=== PATIENT | female | born 1955 | race Caucasian/White ===

== ENCOUNTER 2018-08-16 15:58 | Emergency (ER) | payer OTHER ==
[~2018-08-16] VITALS: Wt 69.4 kg
[2018-08-16] MEDS ORDERED: ALTEPLASE (tPA) 1 MG/ML BOLUS SYG IV* ONE (16:30)
[2018-08-16] MEDS ORDERED: ALTEPLASE 100 MG INJ IV* ONE (16:30)
[2018-08-16] MEDS ORDERED: SOD CHLORIDE 0.9% 50 ML IV ONE (16:30)
[2018-08-16] MEDS ORDERED: GABA300C16 PO (16:37)
[2018-08-16] MEDS ORDERED: LOSA100T15 PO (16:37)
[2018-08-16] MEDS ORDERED: GLIP5TAB13 PO (16:38)
[2018-08-16] MEDS ORDERED: AMLO5TAB4 PO (16:38)
[2018-08-16] MEDS ORDERED: METF100010 PO (16:39)
[2018-08-16] MEDS ORDERED: ATOR40TA68 PO (16:39)
[2018-08-16] MEDS ORDERED: IBUP-1542 PO (16:40)
--- NOTE | 2018-08-16 16:49 | STROKE ---
Date/Time of Note Date/Time of Note DATE: 08/16/18 TIME: 16:48 Patient Information General Patient location: emergency Arrival Date Age 63 Gender female Weight 69.4 kg Vital Signs Vital Signs Vital Signs Date Temp Pulse Resp B/P (MAP) Pulse Ox O2 O2 Flow FiO2 Time Delivery Rate 08/16/18 Nasal 1 16:40 Cannula 08/16/18 116 16 154/99 95 16:33 (117) Patient History Current Medications Allergies: Coded Allergies: No Known Allergy (Unverified , 08/16/18) Labs Coagulation Labs: Coagulation Test 08/16/18 16:09 Activated Partial Thromboplast Time 30.5 Sec (23.0-35.0) History & Physical History of Present Illness 63 F PMH DM, HTN LKW 1530 PST with acute left hemiparesis/hemianesthesia with some improvement prior to ED arrival per EMS NIH Stroke Scale NIH Stroke Scale [id number] Total Score: [id number] Date/Time Recorded DATE: 08/16/18 TIME: 16:23 Submitted By Ifeanyi Rausch t-PA Imaging Review Date/Time Imaging Reviewed DATE: 08/16/18 TIME: 16:17 t-PA Administration Recommendation: Yes Weight 69.4 kg Recommedation submitted by Ifeanyi Rausch Recommendations Disposition 63 F with acute left hemiparesis/hemianesthesia concerning for stroke. There is a right sylvian fissure hyperdensity concerning for distal right MCA occlusion. NIHSS is 4. Patient consents to IV tPA. Needs evaluation by Neuro IR regarding possible dense MCA sign distally on right side and CTA/CTP. Recommendation - Agree with transfer to [facility] for CTA/CTP to guide possible mechanical thrombectomy (not rigid evidence-based candidate as NIHSS currently 4, but cepting team can decide on mechanical thrombectomy evaluation for low NIHSS) Impression and plans were discussed with the patient and separately with the ER physician. The risks and benefits of the clot busting drug tPA were discussed. This included a 30% increased probability of good outcome at 3 months compared to no treatment with tPA and a 6% greater chance of bleeding into the brain when compared to patients not receiving tPA. Patient's blood pressure will need to be <185/110 in order to be a candidate for TPA. The patient expressed understanding and would like to receive IV tPA. The patient should be admitted for evaluation according to hospital stroke order sets. This may include, if possible, MRI of the brain, MRA of the cervical and intracranial vessels, echocardiogram with bubble study, cardiac telemetry monitoring, PT, OT, Speech Pathology evaluations, LDL, A1c. Stroke risk factors should be evaluated and treated if appropriate. Vital signs and neuro checks should be undertaken every hour for the next 12 hours and, if the patient is stable without progression, every 4 hours thereafter. Venous thromboembolism prophylaxis should be undertaken with SCDs sleeves. No anticoagulation or antiplatelet agents should be given for the first 24 hours after TPA. Short-term treatment of hypertension should be undertaken with nicardipine to maintain blood pressure in a range of systolic <1 80 systolic and diastolic <110 as clinically appropriate. Unless contraindicated, the patient should be started on a statin as well as sliding scale insulin until the patients glucometer readings are consistently 140-180. Repeat Head CT should be done within 24 hours of IV tPA administration to ensure no interval development of intracerebral hemorrhage. If evidence of ICH, then emergent Neurosurgical consultation will be required. Consultation with a local neurologist is recommended. IFEANYI RAUSCH MD Aug 16, 2018 16:49
[2018-08-16] MEDS ORDERED: ASPIRIN 325 MG TAB PO ONE (17:00)
--- NOTE | 2018-08-16 17:00 | ERD ---
ER Documentation Chief Complaint Chief Complaint WEAKNESS ON LEFT AT APPOX 1530 HPI Patient is a 63-year-old female with hypertension and diabetes who presents with dizziness and weakness. The patient was brought in by ambulance. She started with left-sided weakness of her arm and inability to first officer at 3:30 PM. It was 30 minutes prior to arrival. He got a little bit better but still was weaker on the left than the right. She had left leg numbness and left arm numbness. There was no slurred speech. Blood sugar was 186. She says that her primary doctor is Dr. Moeller. ROS All systems reviewed and are negative except as per history of present illness. Medications Home Meds Reported Medications Ibuprofen* (Ibuprofen*) 600 Mg Tablet, 600 MG PO Q8 PRN for NEEDED, TAB 08/16/18 Metformin Hcl* (Metformin Hcl*) 1,000 Mg Tablet, 1000 MG PO WITH BREAKFAST DINNE, #60 TAB 08/16/18 Atorvastatin* (Atorvastatin*) 40 Mg Tablet, 40 MG PO QHS, #30 TAB 08/16/18 Amlodipine Besylate* (Norvasc*) 5 Mg Tablet, 5 MG PO DAILY, TAB 08/16/18 Glipizide* (Glipizide*) 5 Mg Tablet, 2.5 MG PO AC BREAKFAST, TAB 08/16/18 Gabapentin* (Gabapentin*) 300 Mg Capsule, 300 MG PO DAILY, #60 CAP 08/16/18 Losartan Potassium* (Losartan Potassium*) 100 Mg Tablet, 100 MG PO DAILY, TAB 08/16/18 Allergies Allergies: Coded Allergies: No Known Allergy (Unverified , 08/16/18) PMhx/Soc Hx Cardiac Disorders: Yes (HTN) Hx Miscellaneous Medical Probl: Yes (DM) Hx Alcohol Use: No Hx Substance Use: No Hx Tobacco Use: No Smoking Status: Never smoker FmHx Family History: diabetes Physical Exam Vitals Vital Signs Date Temp Pulse Resp B/P (MAP) Pulse Ox O2 O2 Flow FiO2 Time Delivery Rate 08/16/18 Nasal 1 16:40 Cannula 08/16/18 116 16 154/99 95 16:33 (117) 08/16/18 195 18 167/85 95 Room Air 16:25 (112) Physical Exam Const: No acute distress Head: Atraumatic Eyes: Normal Conjunctiva ENT: Normal External Ears, Nose and Mouth. Neck: Full range of motion. No meningismus. Resp: Clear to auscultation bilaterally Cardio: Regular rate and rhythm, no murmurs Abd: Soft, non tender, non distended. Normal bowel sounds Skin: No petechiae or rashes Back: No midline or flank tenderness Ext: No cyanosis, or edema Neur: Awake and alert, first officer strength decreased on the left compared to the right, mild pronator drift, left-sided facial droop, no slurred speech, numbness of the left upper and left lower extremity Psych: Normal Mood and Affect Result Diagram: 08/16/18 1609 08/16/18 1609 Results 24 hrs Laboratory Tests Test 08/16/18 16:09 White Blood Count 11.1 10^3/ul Red Blood Count 4.21 10^6/ul Hemoglobin 13.1 g/dl Hematocrit 38.6 % Mean Corpuscular Volume 91.7 fl Mean Corpuscular Hemoglobin 31.1 pg Mean Corpuscular Hemoglobin Concent 33.9 g/dl Red Cell Distribution Width 12.3 % Platelet Count 327 10^3/UL Mean Platelet Volume 10.0 fl Immature Granulocytes % 0.500 % Neutrophils % 52.0 % Lymphocytes % 37.6 % Monocytes % 6.7 % Eosinophils % 2.7 % Basophils % 0.5 % Nucleated Red Blood Cells % 0.0 /100WBC Immature Granulocytes # 0.060 10^3/ul Neutrophils # 5.8 10^3/ul Lymphocytes # 4.2 10^3/ul Monocytes # 0.7 10^3/ul Eosinophils # 0.3 10^3/ul Basophils # 0.1 10^3/ul Nucleated Red Blood Cells # 0.0 10^3/ul Prothrombin Time 12.1 Sec Prothrombin Time Ratio 0.9 INR International Normalized Ratio 0.89 Activated Partial Thromboplast Time 30.5 Sec Sodium Level 141 mmol/L Potassium Level 3.8 mmol/L Chloride Level 101 mmol/L Carbon Dioxide Level 25 mmol/L Anion Gap 15 Blood Urea Nitrogen 16 mg/dl Creatinine 0.56 mg/dl Est Glomerular Filtrat Rate mL/min > 60 mL/min Glucose Level 155 mg/dl Hemoglobin A1c 6.5 % Calcium Level 9.3 mg/dl Creatine Kinase 66 IU/L Creatine Kinase Index Pending Creatinine Kinase MB (Mass) Pending Troponin I Pending Triglycerides Level 180 mg/dl Cholesterol Level 137 mg/dl LDL Cholesterol, Calculated 55 mg/dl HDL Cholesterol 46 mg/dl Cholesterol/HDL Ratio 2.9 RATIO Ethyl Alcohol Level Pending Current Medications Medications Dose Sig/Ugo Start Time Status Last (Trade) Ordered Route PRN Stop Time Admin Dose Reason Admin Alteplase, 6.2 mg BOLUS OVER 1 08/16/18 DC 08/16/18 Recombinant MIN ONCE 16:30 16:35 (Activase) IV* 08/16/18 16:31 Alteplase, 56.2 mg ISCHEMIC 08/16/18 DC 08/16/18 Recombinant STROKE ONCE 16:30 16:36 (Activase) IV* 08/16/18 16:31 Sodium 50 ml @ 0 FLUSH AFTER 08/16/18 DC Chloride mls/hr TPA ONCE IV 16:30 08/16/18 16:31 Aspirin 325 mg ONCE ONCE 08/16/18 (Aspirin) PO 17:00 08/16/18 17:01 Procedures/MDM EKG, MONITORS, & DIAGNOSTIC IMAGING: EKG: I reviewed and interpreted a 12-lead EKG. Rhythm: Normal sinus rhythm Ectopy: None Arrhythmia: None Intervals: No abnormalities ST segments: No elevations or depressions T waves: No contiguous inversions Interpretation: No acute cardiac ischemia Chest x-ray read by radiology. CT Brain: CT negative for bleed per radiology. LAB INTERPRETATION: hemoglobin A1c is elevated. Coagulation studies were normal MEDICAL DECISION MAKING: Patient is a 63-year-old female who presents with symptoms of acute stroke. The patient was within the window for TPA. A code stroke was called and TPA was recommended by neurology. TPA was ordered given within 37 minutes of arrival to the ER. The patient was given aspirin after she passed a swallow evaluation. S he will be transferred to [facility] for higher level of care with an accepting doctor of Dr. Pantoja. Stroke assessment and timing: Last Known Well Time (LKWT): 3:30 PM Arrival to ED: 1600 Stroke code activation: [address] scan: 1602 Initial neurology discussion: 1607 NIHSS: 4 TPA decision-making: TPA recommended by Dr. Su. Interventional decision-making: Patient will be transferred [facility] with accepting physician of Dr. obrien for possible mechanical retrieval. TPA bolus timin Reevaluation after TPA: No decline in neuro function Stroke neurologist on-call: Dr. Su Critical Care Note: Total time: 45 excluding all billable procedures. Indication/Organ System Threat: Acute neurologic deficit and stroke code activation that requires emergent evaluation and assessment to prevent neurologic compromising collapse. I spent the above amount of critical care time with the patient, not including billable procedures. This included chart review, consultations, repeat bedside evaluations, and titration of appropriate medications to prevent cardiopulmonary or respiratory collapse. I kept the patient and/or family informed of laboratory and diagnostic imaging results throughout the emergency room course. DISPOSITION PLAN: Transfer to [facility] Departure Diagnosis: Primary Impression: Stroke CVA mechanism: unspecified Qualified Codes: I63.9 - Cerebral infarction, unspecified Condition: Critical THANG KAISER MD Aug 16, 2018 17:00
[2018-08-16] MEDS ORDERED: IOHEXOL 100 ML ONE (17:47)
[2018-08-16] MEDS ORDERED: SOD CHLORIDE 0.9% 100 ML ONE (17:47)
[2018-08-16 19:57] VITALS: BP 166/85; PULSE 106; RESP 18
== END 2018-08-16 20:05 | disposition short-term general hospital (02) ==
LOC: E/R 15:58
DX: I63.9 Cerebral infarction, unspecified (principal); I10 Essential (primary) hypertension; E11.9 Type 2 diabetes mellitus without complications; Z79.84 Long term (current) use of oral hypoglycemic drugs
CPT/HCPCS: 37195; 70450; 70496; 70498; 71045; 80048; 80061; 80307; 81001; 82550; 82553; 82962; 83036; 84484; 85025; 85610; 85730; 93005; J2997; Q9967; Z7502; Z7610